=== PATIENT | female | born 1975 | race Caucasian/White ===

== ENCOUNTER 2021-06-11 21:17 | Emergency (ER) | payer BC ==
[~2021-06-11] VITALS: Ht 162.6 cm; Wt 77.1 kg
--- NOTE | 2021-06-11 21:25 | NUR ---
Provider present in room at this time.
[2021-06-11 21:27] VITALS: BP_SYST 142
--- NOTE | 2021-06-11 21:28 | NUR ---
Placed in room 3 . Placed on nurse monitoring, blood pressure machine and pulse oximeter. To gown for exam. Side rails up. Report given to EDI MCLEAN (REG).
--- NOTE | 2021-06-11 21:32 | NUR ---
First contact. Pt in process of EKG. Placed on monitor.
[2021-06-11] MEDS ORDERED: IPRATROPIUM/ALBUTEROL SULFATE 3 ML AMPUL.NEB (DUONEB) INH ONE (22:30)
[2021-06-11] MEDS ORDERED: predniSONE 20 MG TABLET PO ONE (22:30)
[2021-06-11 23:50] VITALS: BP_SYST 112
[2021-06-12] MEDS ORDERED: PRED20TA PO
[2021-06-12] MEDS ORDERED: ALBU8.5H8 INH
--- NOTE | 2021-06-12 00:18 | NUR ---
Patient given written and verbal discharge instructions and verbalizes understanding. ER MD discussed with patient the results and treatment provided. Patient in stable condition. ID arm band removed. IV catheter removed intact and dressing applied, no active bleeding.Rx of inhaler & prednisone given. Patient educated on pain management and to follow up with PMD. Opportunity for questions provided and answered. Medication side effect fact sheet provided.
== END 2021-06-12 00:18 | disposition home or self-care (01) ==
LOC: SED 21:17
DX: J45.901 Unspecified asthma with (acute) exacerbation (principal); Z79.52 Long term (current) use of systemic steroids; Z88.0 Allergy status to penicillin
CPT/HCPCS: 71045; 93005; 94640; 99283; J7512